=== PATIENT | male | born 1945 | race Caucasian/White ===

== ENCOUNTER 2019-12-22 06:10 | Outpatient (REF) | payer MEDICARE, SELFPAY ==
[2019-12-22 07:00] LABS: MANUAL DIFF FLAG NO
[2019-12-22 07:08] LABS: Basophils Percent Auto 0.5 % (0-2); Eosinophils Absolute Auto 0.2 X10*3/uL (0.0-0.4); Eosinophils Percent Auto 2.3 % (0-4); Hematocrit 40.9 % (42-52); Hemoglobin 14.5 g/dl (14.0-18.0); Imm Gran Abs Auto 0.03 X10*3/uL (0.00-0.03); Imm Gran Pct Auto 0.4 % (0.0-0.4); Lymphocytes Absolute Auto 0.9 X10*3/uL (1.2-4.9); Lymphocytes Percent Auto 12.2 % (20-40); Mean Corpuscular HGB Conc 35.5 g/dl (31.0-36.0); Mean Corpuscular Hemoglobin 31.6 pg (27.0-33.0); Mean Corpuscular Volume 89.1 fL (80-98); Mean Platelet Volume 11.1 fL (9.4-12.4); Monocytes Absolute Auto 0.7 X10*3/uL (0.1-1.2); Neutrophils Absolute Auto 5.6 X10*3/uL (2.0-8.3); Neutrophils Percent Auto 75.6 % (45-73); Platelet Count 215 X10*3/uL (160-400); Red Blood Count 4.59 X10*6/uL (4.60-5.80); White Blood Count 7.4 X10*3/uL (4.8-10.8)
[2019-12-22 07:36] LABS: Alanine Aminotransferase 24 U/L (0-40); Albumin Level 4.4 g/dL (3.5-5.0); Alkaline Phosphatase 91 U/L (39-117); Anion Gap 11 (12-20); Aspartate Amino Transferase 23 U/L (5-37); Blood Urea Nitrogen 13 mg/dL (9-16); Calcium 9.4 mg/dL (8.4-10.2); Carbon Dioxide 29 mmol/L (22-29); Chloride 98 mmol/L (96-108); Cholesterol 226 mg/dL; Estimated Glomerular Filt Rate > 60; Glucose Fasting 107 mg/dL (60-99); HDL Cholesterol 53 mg/dL; LDL Cholesterol Calculated 157 mg/dl; Potassium 4.2 mmol/l (3.3-5.1); Sodium 134 mmol/L (135-145); Total Protein 7.5 g/dL (6.5-8.0); Triglycerides 81 mg/dL
[2019-12-22 13:19] LABS: Thyroid Stimulating Hormone 1.34 uIU/mL (0.32-4.0)
== END 2019-12-22 06:11 | disposition home or self-care (01) ==
LOC: HO.LAB 06:10
PROVIDERS: PCP Internal Medicine; Visit Provider Internal Medicine
DX: I10 Essential (primary) hypertension (principal)
CPT/HCPCS: 36415; 80053; 80061; 84443; 85025

== ENCOUNTER 2020-08-30 06:15 | Outpatient (REF) | payer MEDICARE, SELFPAY ==
[2020-08-30 06:51] LABS: MANUAL DIFF FLAG NO
[2020-08-30 06:56] LABS: Basophils Absolute Auto 0.1 X10*3/uL (0.0-0.2); Basophils Percent Auto 0.5 % (0-2); Eosinophils Absolute Auto 0.2 X10*3/uL (0.0-0.4); Eosinophils Percent Auto 1.4 % (0-4); Hematocrit 40.5 % (42-52); Hemoglobin 13.8 g/dl (14.0-18.0); Imm Gran Abs Auto 0.05 X10*3/uL (0.00-0.03); Imm Gran Pct Auto 0.4 % (0.0-0.4); Lymphocytes Absolute Auto 0.9 X10*3/uL (1.2-4.9); Lymphocytes Percent Auto 7.8 % (20-40); Mean Corpuscular HGB Conc 34.1 g/dl (31.0-36.0); Mean Corpuscular Hemoglobin 30.8 pg (27.0-33.0); Mean Corpuscular Volume 90.4 fL (80-98); Mean Platelet Volume 10.5 fL (9.4-12.4); Monocytes Absolute Auto 0.8 X10*3/uL (0.1-1.2); Monocytes Percent Auto 6.5 % (2-11); Neutrophils Absolute Auto 9.7 X10*3/uL (2.0-8.3); Neutrophils Percent Auto 83.4 % (45-73); Platelet Count 264 X10*3/uL (160-400); Red Blood Count 4.48 X10*6/uL (4.60-5.80); Red Cell Distribution Width 12.5 % (11.0-16.0); White Blood Count 11.6 X10*3/uL (4.8-10.8)
[2020-08-30 07:23] LABS: Alanine Aminotransferase 14 U/L (0-40); Alkaline Phosphatase 124 U/L (39-117); Anion Gap 11 (12-20); Aspartate Amino Transferase 19 U/L (5-37); Blood Urea Nitrogen 10 mg/dL (9-16); Calcium 9.3 mg/dL (8.4-10.2); Carbon Dioxide 30 mmol/L (22-29); Chloride 97 mmol/L (96-108); Cholesterol 207 mg/dL; Estimated Glomerular Filt Rate > 60; Glucose Fasting 101 mg/dL (60-99); HDL Cholesterol 50 mg/dL; LDL Cholesterol Calculated 142 mg/dl; Potassium 4.4 mmol/L (3.3-5.1); Sodium 134 mmol/L (135-145); Total Protein 7.5 g/dL (6.5-8.0); Triglycerides 77 mg/dL
[2020-08-30 07:51] LABS: Prostate Specific Antigen 0.28 ng/mL (<0.05-4.0); TSH reflex Free T4 1.73 uIU/mL (0.32-4.0)
[2020-08-30 12:12] LABS: Vitamin D 25-OH Total 26.5 ng/mL (>30)
== END 2020-08-30 06:16 | disposition home or self-care (01) ==
LOC: HO.LAB 06:15
PROVIDERS: PCP Internal Medicine; Visit Provider Nurse Practitioner Family
DX: Z00.00 Encounter for general adult medical examination without abnormal findings (principal); Z12.5 Encounter for screening for malignant neoplasm of prostate; Z13.1 Encounter for screening for diabetes mellitus; Z13.220 Encounter for screening for lipoid disorders
CPT/HCPCS: 36415; 80053; 80061; 82306; 84153; 84443; 85025

== ENCOUNTER 2021-07-23 07:11 | Outpatient (REF) | payer MEDICARE, SELFPAY ==
[2021-07-23 07:25] LABS: MANUAL DIFF FLAG NO
[2021-07-23 08:16] LABS: Basophils Absolute Auto 0.1 X10*3/uL (0.0-0.2); Basophils Percent Auto 0.6 % (0-2); Eosinophils Absolute Auto 0.1 X10*3/uL (0.0-0.4); Hemoglobin 13.9 g/dl (14.0-18.0); Imm Gran Abs Auto 0.04 X10*3/uL (0.00-0.03); Imm Gran Pct Auto 0.4 % (0.0-0.4); Lymphocytes Absolute Auto 0.8 X10*3/uL (1.2-4.9); Lymphocytes Percent Auto 8.7 % (20-40); Mean Corpuscular HGB Conc 34.8 g/dl (31.0-36.0); Mean Corpuscular Hemoglobin 31.6 pg (27.0-33.0); Mean Corpuscular Volume 90.9 fL (80.0-98.0); Mean Platelet Volume 10.5 fL (9.4-12.4); Monocytes Absolute Auto 0.7 X10*3/uL (0.1-1.2); Monocytes Percent Auto 7.2 % (2-11); Neutrophils Absolute Auto 7.9 x10*3/uL (2.0-8.3); Neutrophils Percent Auto 82.1 % (45-73); Platelet Count 258 X10*3/uL (160-400); Red Cell Distribution Width 12.3 % (11.0-16.0); White Blood Count 9.6 X10*3/uL (4.8-10.8)
[2021-07-23 08:24] LABS: Alanine Aminotransferase 21 U/L (0-40); Alkaline Phosphatase 94 U/L (39-117); Anion Gap 11 (12-20); Aspartate Amino Transferase 24 U/L (5-37); Blood Urea Nitrogen 16 mg/dL (9-16); Calcium 9.1 mg/dL (8.4-10.2); Carbon Dioxide 27 mmol/L (22-29); Chloride 98 mmol/L (96-108); Cholesterol 220 mg/dL; Estimated Glomerular Filt Rate > 60; Glucose Fasting 98 mg/dL (60-99); HDL Cholesterol 43 mg/dL; LDL Cholesterol Calculated 163 mg/dl; Potassium 4.4 mmol/L (3.3-5.1); Sodium 132 mmol/L (135-145); Total Protein 7.2 g/dL (6.5-8.0); Triglycerides 71 mg/dL
[2021-07-23 08:47] LABS: Thyroid Stimulating Hormone 1.32 uIU/mL (0.32-4.0)
== END 2021-07-23 07:12 | disposition home or self-care (01) ==
LOC: HO.LAB 07:11
PROVIDERS: PCP Internal Medicine; Visit Provider Internal Medicine
DX: Z00.00 Encounter for general adult medical examination without abnormal findings (principal); Z13.0 Encounter for screening for diseases of the blood and blood-forming organs and certain disorders involving the immune mechanism; Z13.9 Encounter for screening, unspecified; E78.5 Hyperlipidemia, unspecified
CPT/HCPCS: 36415; 80053; 80061; 84443; 85025

== ENCOUNTER 2022-07-30 07:21 | Outpatient (REF) | payer MEDICARE, SELFPAY ==
[2022-07-30 07:39] LABS: MANUAL DIFF FLAG NO
[2022-07-30 08:21] LABS: Basophils Absolute Auto 0.1 X10*3/uL (0.0-0.2); Basophils Percent Auto 0.8 % (0-2); Eosinophils Absolute Auto 0.2 X10*3/uL (0.0-0.4); Eosinophils Percent Auto 2.8 % (0-4); Hematocrit 39.4 % (42.0-52.0); Hemoglobin 13.4 g/dl (14.0-18.0); Imm Gran Abs Auto 0.02 X10*3/uL (0.00-0.03); Imm Gran Pct Auto 0.3 % (0.0-0.4); Lymphocytes Percent Auto 13.1 % (20-40); Mean Corpuscular Hemoglobin 30.9 pg (27.0-33.0); Mean Corpuscular Volume 90.8 fL (80.0-98.0); Mean Platelet Volume 11.2 fL (9.4-12.4); Monocytes Absolute Auto 0.7 X10*3/uL (0.1-1.2); Monocytes Percent Auto 9.1 % (2-11); Neutrophils Absolute Auto 5.4 x10*3/uL (2.0-8.3); Neutrophils Percent Auto 73.9 % (45-73); Platelet Count 231 X10*3/uL (160-400); Red Blood Count 4.34 X10*6/uL (4.60-5.80); Red Cell Distribution Width 12.3 % (11.0-16.0); White Blood Count 7.3 X10*3/uL (4.8-10.8)
[2022-07-30 08:59] LABS: Alanine Aminotransferase 18 U/L (0-40); Alkaline Phosphatase 86 U/L (39-117); Anion Gap 12 (12-20); Aspartate Amino Transferase 24 U/L (5-37); Bilirubin Total 0.7 mg/dL (0.0-1.0); Blood Urea Nitrogen 13 mg/dL (9-16); Calcium 9.8 mg/dL (8.4-10.2); Carbon Dioxide 29 mmol/L (22-29); Chloride 100 mmol/L (96-108); Cholesterol 199 mg/dL; Estimated Glomerular Filt Rate > 60; Glucose Fasting 101 mg/dL (60-99); HDL Cholesterol 48 mg/dL; LDL Cholesterol Calculated 138 mg/dl; Potassium 4.2 mmol/L (3.3-5.1); Sodium 137 mmol/L (135-145); Total Protein 7.4 g/dL (6.5-8.0); Triglycerides 65 mg/dL
== END 2022-07-30 07:22 | disposition home or self-care (01) ==
LOC: HO.LAB 07:21
PROVIDERS: PCP Internal Medicine; Visit Provider Internal Medicine
DX: D64.9 Anemia, unspecified (principal); N28.9 Disorder of kidney and ureter, unspecified; E78.5 Hyperlipidemia, unspecified
CPT/HCPCS: 36415; 80053; 80061; 85025

== ENCOUNTER 2023-08-06 06:01 | Outpatient (REF) | payer MEDICARE, SELFPAY ==
[2023-08-06 06:16] LABS: MANUAL DIFF FLAG NO
[2023-08-06 07:20] LABS: Basophils Percent Auto 0.4 % (0-2); Eosinophils Absolute Auto 0.1 X10*3/uL (0.0-0.4); Eosinophils Percent Auto 1.6 % (0-4); Hemoglobin 14.1 g/dl (14.0-18.0); Imm Gran Abs Auto 0.03 X10*3/uL (0.00-0.03); Imm Gran Pct Auto 0.4 % (0.0-0.4); Lymphocytes Absolute Auto 0.9 X10*3/uL (1.2-4.9); Lymphocytes Percent Auto 11.6 % (20-40); Mean Corpuscular HGB Conc 34.4 g/dl (31.0-36.0); Mean Corpuscular Hemoglobin 30.8 pg (27.0-33.0); Mean Corpuscular Volume 89.5 fL (80.0-98.0); Mean Platelet Volume 10.6 fL (9.4-12.4); Monocytes Absolute Auto 0.6 X10*3/uL (0.1-1.2); Monocytes Percent Auto 7.8 % (2-11); Neutrophils Absolute Auto 5.7 x10*3/uL (2.0-8.3); Neutrophils Percent Auto 78.2 % (45-73); Platelet Count 248 X10*3/uL (160-400); Red Blood Count 4.58 X10*6/uL (4.60-5.80); Red Cell Distribution Width 12.3 % (11.0-16.0); White Blood Count 7.3 X10*3/uL (4.8-10.8)
[2023-08-06 07:51] LABS: Alanine Aminotransferase 19 U/L (0-40); Albumin Level 4.1 g/dL (3.5-5.0); Alkaline Phosphatase 84 U/L (39-117); Anion Gap 14 (12-20); Aspartate Amino Transferase 25 U/L (5-37); Bilirubin Total 0.7 mg/dL (0.0-1.0); Blood Urea Nitrogen 10 mg/dL (9-16); Calcium 9.6 mg/dL (8.4-10.2); Carbon Dioxide 27 mmol/L (22-29); Chloride 94 mmol/L (96-108); Cholesterol 209 mg/dL (<200); Estimated Glomerular Filt Rate > 60; Glucose Fasting 105 mg/dL (60-99); HDL Cholesterol 46 mg/dL (>40); LDL Cholesterol Calculated 147 mg/dL (<100); Potassium 4.5 mmol/L (3.3-5.1); Sodium 130 mmol/L (135-145); Total Protein 7.7 g/dL (6.5-8.0); Triglycerides 80 mg/dL (<150)
[2023-08-06 08:09] LABS: Thyroid Stimulating Hormone 1.78 uIU/mL (0.32-4.0)
== END 2023-08-06 06:02 | disposition home or self-care (01) ==
LOC: HO.LAB 06:01
PROVIDERS: PCP Internal Medicine; Visit Provider Internal Medicine
DX: Z13.29 Encounter for screening for other suspected endocrine disorder (principal); Z13.220 Encounter for screening for lipoid disorders; Z13.0 Encounter for screening for diseases of the blood and blood-forming organs and certain disorders involving the immune mechanism; Z20.2 Contact with and (suspected) exposure to infections with a predominantly sexual mode of transmission
CPT/HCPCS: 36415; 80053; 80061; 84443; 85025

== ENCOUNTER 2023-08-15 08:46 | Outpatient (AMB) | payer MEDICARE, SELFPAY ==
[2023-08-15 08:49] VITALS: BP 130/62; PULSE 74; O2SAT 98; BMI 22.8
--- NOTE | 2023-08-15 08:49 | A.OFFPC_ITS ---
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 per policy Accompanied by: Self / Same As Patient Allergies No Known Allergies Allergy (Verified 08/15/23 08:49) Medication List - Last Reconciled 08/15/23 by Hayden Narvaez MD amlodipine 10 mg PO DAILY hydrochlorothiazide 25 mg PO DAILY Tobacco use date assessed: 08/15/23 Fall risk assessment: No Falls in past year Last assessed Fall Risk: 08/15/23 Dental Screening Dental Screen Date: 08/15/23 Did you have a dental visit in the last 12 months?: Yes Did you have a dental problem in the last 6 months where you did not have access to dental care?: No Was dental information given to patient?: Patient has dentist HPI PHYSICAL HPI Details hypertension on rx; doing well and complianr [facility] Medical History (Updated 08/15/23 @ 09:14 by Hayden Narvaez MD) Screening for prostate cancer Screening for hyperlipidemia Screening for diabetes mellitus Hypertension Surgical History History of colonoscopy No pertinent past surgical history Family History Father No problems noted. Mother Stroke Social History Housing: Condominium Alcohol intake: current Alcohol intake frequency: a few times a week Patient Tobacco Use Status: Never used Tobacco e-Cigarette/Vaping Use: Never Used Second Hand Smoke Exposure: No service: No Current occupational status: retired Cognitive needs: No Hearing needs: No Vision needs: No Questionnaire PHQ-9 Over the last 2 weeks, how often have you been bothered by any of the following problems? 1. Little interest or pleasure in doing things: not at all 2. Feeling down, depressed, or hopeless: not at all 3. Trouble falling or staying asleep, or sleeping too much: not at all 4. Feeling tired or having little energy: not at all 5. Poor appetite or overeating: not at all 6. Feeling bad about yourself - or that you are a failure or have let yourself or your family down: not at all 7. Trouble concentrating on things, such as reading the newspaper or watching television: not at all 8. Moving or speaking so slowly that other people could have noticed. Or the opposite - being so fidgety or restless that you have been moving around a lot more than usual: not at all 9. Thoughts that you would be better off or of hurting yourself in some way: not at all Total score: 0 Depression Screening Interpretation: Negative Depression Screening Done: Yes 41667 - PHQ-9 Billing: Yes Source: Developed by Drs. Alessandro Wright, Sridevi Solis, Emil Taylor and colleagues, with an educational sonya from [employer]. Thrive Questionnaire Date Thrive assessed: 08/15/23 I am a: Patient What is your living situation today?: I have a steady place to live Within the past 12 months, did the food you bought not last and you didn't have the money to get more?: Never true Within the past 12 months, did you worry whether your food would run out before you got money to buy more?: Never true Do you have trouble paying for medicines?: No Do you have trouble getting transportation to medical appointments?: No Do you have trouble paying your heating and electricity bill?: No Do you have trouble taking care of your child, family member or friend?: No Do you have trouble with day-to-day activities such as bathing, preparing meals, shopping, managing finances, etc.?: No Are you currently unemployed and looking for a job?: No Are you interested in more education?: No Please select the resources that you would like help with: None THRIVE Score: 0 AUDIT C Alcohol Use Questionnaire (AUDIT-C) 1. How often do you have a drink containing alcohol?: Never Total Score: 0 Score Reviewed/Action Taken: Yes SUSANNAH-7 AMB Questionnaire SUSANNAH-7 Date SUSANNAH - 7 assessed: 08/15/23 Feeling nervous, anxious, or on edge: 0 = Not at all Not being able to stop or control worryin = Not at all Worrying too much about different things: 0 = Not at all Trouble relaxin = Not at all Being so restless that it is hard to sit still: 0 = Not at all Becoming easily annoyed or irritable: 0 = Not at all Feeling afraid as if something awful might happen: 0 = Not at all Total SUSANNAH-7 score (0-4 normal; 5-9 mild; 10-14 moderate; 15-21 severe): 0 Source: Developed by Drs. Alessandro Wright, Sridevi Solis, Emil Taylor and colleagues, with an educational sonya from [employer]. Review of Systems Const Denies chills, Denies fatigue, Denies headache(s) and Denies weight loss Eyes Denies change in vision, Denies diplopia and Denies eye pain ENT Denies vertigo, Denies dizziness, Denies headache(s) and Denies nasal discharge Card Denies chest pain, Denies rapid heart rate and Denies dyspnea on exertion Resp Denies chest congestion, Denies cough, Denies pain with cough and Denies dyspnea on exertion GI Denies abdominal pain, Denies hematochezia and Denies change in bowel habits Musc Denies myalgias, Denies arthralgias and Denies joint swelling Skin/Breast Denies lesions and Denies unusual bruising Neuro Denies vertigo, Denies dizziness, Denies headache(s) and Denies focal weakness Endo Denies fatigue Physical exam (Primary Care) Vital Signs: Last Vital Signs Pulse 74 08/15/23 08:49 BP 130/62 08/15/23 08:49 Pulse Ox 98 08/15/23 08:49 Oxygen Delivery Method Room Air 08/15/23 08:49 BMI result Body Mass Index 22.8 Tobacco/Smoking Status: Tobacco use Status Tobacco use date assessed 08/15/23 08/15/23 08:50 Patient Tobacco Use Status Never used Tobacco 08/15/23 08:50 e-Cigarette/Vaping Use Never Used 08/15/23 08:50 PHQ-9: PHQ-9 Score PHQ-9: Total score 0 08/15/23 09:14 Depression Screening Interpretation: Negative Thrive Assessment: Date of Thrive Assessment Date Thrive assessed 08/15/23 08/15/23 08:50 Const General: cooperative, healthy appearing and no acute distress Orientation/consciousness: oriented to person, oriented to place and oriented to time HENCT Head: Yes normal to inspection, Yes normocephalic and Yes atraumatic Mouth: Normal oral and palatal mucosa present and tongue normal Throat: Yes posterior oropharynx normal and Yes uvula midline Eyes General: appearance normal, both eyes and all related structures Neck Neck: Yes normal visual inspection, Yes full ROM and Yes no lymphadenopathy Thyroid: Thyroid normal Carotids: normal carotid upstroke Chest Chest palpation & inspection: normal inspection of the chest Resp Effort & Inspection: normal respiratory effort and able to speak in complete sentences Auscultation: clear to auscultation bilaterally Cardio Jugular venous distension: no JVD Palpation: normal PMI Rate: regular rate Rhythm: regular rhythm Heart sounds: S1 normal heart sound present and S2 normal heart sound present GI Inspection: Yes normal to inspection Palpation (GI): Soft to palpation and No hepatosplenomegaly present Auscultation: normal bowel sounds General: Yes no CVA tenderness Back/Spine/Pelvis Back: no CVA tenderness Skin General skin exam: no rashes or lesions noted Neuro General: oriented to person, oriented to place and oriented to time Extrem General: Yes normal to inspection and Yes full ROM Assessment and Plan Assessment & Plan (1) Physical exam: Code(s): Z00.00 - Encounter for general adult medical examination without abnormal findings Plan: stable (2) Hypertension: Code(s): I10 - Essential (primary) hypertension Qualifiers: Hypertension type: unspecified Qualified Code(s): I10 - Essential (primary) hypertension Plan: same rx Coding Level of Care Code Est Pt Prev Care >65y(82995) Diagnoses Physical exam Z00.00 Hypertension, unspecified type I10 Hypertension type: unspecified
== END 2023-08-15 09:15 | disposition home or self-care (01) ==
PROVIDERS: PCP Internal Medicine; Visit Provider Internal Medicine
DX: Z00.00 Encounter for general adult medical examination without abnormal findings (principal); I10 Essential (primary) hypertension
CPT/HCPCS: 99397

== ENCOUNTER 2024-05-10 10:30 | Outpatient (AMB) | payer MEDICARE, SELFPAY ==
--- NOTE | 2024-05-10 11:51 | AM.OFFWIN_ITS ---
Intake Vital Signs 05/10/24 11:52 Weight 162 lb BP 140/80 H Blood Pressure Location Lt brachial Position Sitting Pulse 92 Pulse Source Pulse Oximeter Pulse Oximetry (%) 97 Oxygen Delivery Method Room Air Intake Visit Reasons: EP LT leg swelling Intake Note: Patient here for left leg swelling that has been present for about 1 week. Patient Tobacco Use Status: Never used Tobacco Allergies No Known Allergies Allergy (Verified 05/10/24 11:52) Do you need a note to return to daycare/school/sports/work: No HPI HPI Comments History of Present Illness Details 79 Y/O Male patient who presents to the walk in clinic with c/o Left lower leg swelling associated with pain and muscle cramping and tightness x 1 week. Does not recall any injury or trauma to the leg. Denies SOB, CP, headaches, wheezing or dizziness. Denies any h/o Blood Clots. Denies taking any Blood Thinners. Denies any Insect bites or rashes. [facility] Medical History (Updated 05/10/24 @ 12:24 by Danielle Becker NP) Lower extremity edema Screening for prostate cancer Screening for hyperlipidemia Screening for diabetes mellitus Hypertension Surgical History History of colonoscopy No pertinent past surgical history Family History Father No problems noted. Mother Stroke [facility] Alcohol intake: current Alcohol intake frequency: a few times a week Patient Tobacco Use Status: Never used Tobacco e-Cigarette/Vaping Use: Never Used Second Hand Smoke Exposure: No service: No Current occupational status: retired Cognitive needs: No Hearing needs: No Vision needs: No Review of Systems Const All systems reviewed & are unremarkable except as noted in HPI and below Physical Exam Vital Signs: Last Vital Signs Pulse 92 05/10/24 11:52 BP 140/80 H 05/10/24 11:52 Pulse Ox 97 05/10/24 11:52 Oxygen Delivery Method Room Air 05/10/24 11:52 Const General: cooperative and no acute distress Orientation/consciousness: patient oriented x3 Neuro General: patient oriented x3, gait normal (Walks with a slight Limp) and moves all extremities Extrem Left lower extremity: full ROM, normal capillary refill and lower leg (Swelling and Edema more pronounced from Left Ankle to Foot) Details: tenderness Location: of the posterior calf, of the distal tibia and of the distal fibula and pitting edema Details: 3+; no erythema and no ecchymosis; no cyanosis Psych Speech and movement: Normal speech and movement present Assessment & Plan Assessment & Plan (1) Lower extremity edema: Code(s): R60.0 - Localized edema Plan: Ordered STAT U/S to r/o DVT. Normal Skin color/Temperature, no obvious Puncture wounds seen. Vital Signs stable, slight elevated BP. No clear etiology at this time. Orders: Orders US venous duplex LE LT Today R60.0 - Localized edema Coding Level of Care Code Est Pt Level 4 (73304) Diagnoses Lower extremity edema R60.0 Time Spent (min) 20
[2024-05-10 11:52] VITALS: BP 140/80; PULSE 92; O2SAT 97
== END 2024-05-10 13:25 | disposition home or self-care (01) ==
PROVIDERS: PCP Internal Medicine; Visit Provider Nurse Practitioner Family
DX: R60.0 Localized edema (principal)

== ENCOUNTER 2024-05-10 10:30 | Outpatient (REF) | payer MEDICARE, SELFPAY | END 2024-05-10 10:31 | disposition home or self-care (01) | LOC: HO.HMGCX 10:30 | PROVIDERS: PCP Internal Medicine; Visit Provider Nurse Practitioner Family | DX: Z13.89 Encounter for screening for other disorder (principal) ==

== ENCOUNTER 2024-05-10 14:56 | Outpatient (REF) | payer MEDICARE, SELFPAY ==
--- NOTE | ~2024-05-10 | US_ITS ---
EXAMINATION: US TRIPLEX LOWER EXTREMITY, LEFT CLINICAL INFORMATION: Localized edema, left lower extremity. COMPARISON: None available. TECHNIQUE: Color-flow triplex imaging with spectral analysis and compression Doppler were performed on the left lower extremity. FINDINGS: Respiratory variation, normal compression and augmented flow are noted throughout the interrogated common femoral vein, superficial femoral vein, profunda femoral vein, popliteal vein and midcalf peroneal and posterior tibial venous. There is an approximately 4 cm lobulated anechoic lesion with internal echoes in the left popliteal region, medially without flow on color Doppler interrogation. US/US venous duplex LE LT IMPRESSION: No acute deep venous thrombosis involving the left lower extremity. Approximately 4 cm complex lobulated left popliteal cyst. The possibility of blood products versus infection cannot be excluded. Findings communicated the at either connect to the requesting nurse practitioner senior administrative assistant Danielle Becker on May 10, 2024 at 3:29 PM Electronically signed by: Melchor Lyons MD 05/10/2024 03:30 PM EDT
== END 2024-05-10 14:57 | disposition home or self-care (01) ==
LOC: HO.HMGCX 14:56
PROVIDERS: PCP Internal Medicine; Visit Provider Nurse Practitioner Family
DX: R60.0 Localized edema (principal); M71.20 Synovial cyst of popliteal space [Baker], unspecified knee
CPT/HCPCS: 93971; 99212

== ENCOUNTER → 2024-05-10 15:00 | Outpatient (BNV) | payer MEDICARE, SELFPAY | PROVIDERS: PCP Internal Medicine; Visit Provider Radiology Diagnostic Radiology | DX: M71.22 Synovial cyst of popliteal space [Baker], left knee (principal); R60.0 Localized edema | CPT/HCPCS: 93971 ==

== ENCOUNTER 2024-05-14 15:11 | Outpatient (AMB) | payer MEDICARE, SELFPAY ==
--- NOTE | 2024-05-14 15:22 | A.OFFPC_ITS ---
Vital Signs 05/14/24 15:24 Height 5 ft 10 in Weight 162 lb 4 oz BMI 23.3 BP 130/62 Blood Pressure Location Lt brachial Position Sitting Pulse 100 Pulse Source Pulse Oximeter Temp 97.1 F Temp Source Temporal Artery Scan Pulse Oximetry (%) 98 Oxygen Delivery Method Room Air Intake Visit Reasons: zeng's cyst Intake Note: Patient is here to follow up on Zeng's cyst. 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 aNrvaez 08/2023 coming in for follow up from walk-in clinic.? Patient was seen in walk-in clinic 05/10/2024 by nurse practitioner for lower extremity edema stat ultrasound ruled out DVT and Zeng's cyst was visualized however concern for significant pain and MRI was ordered. Presenting with concerns regarding a leg cyst. 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 Prednisone treatment initiated with notable symptom amelioration; approximately five days remain in the course of therapy. Little to no pain is associated with the mass, with minor stiffness up on leg extension. The patient remains active, managing daily routines such as ascending and descending stairs frequently without notable impediment. [facility] Medical History Zeng's cyst Lower extremity edema Screening for prostate cancer Screening for hyperlipidemia Screening for diabetes mellitus Hypertension Surgical History History of colonoscopy No pertinent past surgical history Family History Father No problems noted. Mother Stroke Social History Housing: Condominium Alcohol intake: current Alcohol intake frequency: a few times a week Patient Tobacco Use Status: Never used Tobacco e-Cigarette/Vaping Use: Never Used Second Hand Smoke Exposure: No service: No Current occupational status: retired Cognitive needs: No Hearing needs: No Vision needs: No Questionnaire PHQ-9 Over the last 2 weeks, how often have you been bothered by any of the following problems? 1. Little interest or pleasure in doing things: not at all 2. Feeling down, depressed, or hopeless: not at all 3. Trouble falling or staying asleep, or sleeping too much: not at all 4. Feeling tired or having little energy: not at all 5. Poor appetite or overeating: not at all 6. Feeling bad about yourself - or that you are a failure or have let yourself or your family down: not at all 7. Trouble concentrating on things, such as reading the newspaper or watching television: not at all 8. Moving or speaking so slowly that other people could have noticed. Or the opposite - being so fidgety or restless that you have been moving around a lot more than usual: not at all 9. Thoughts that you would be better off or of hurting yourself in some way: not at all Total score: 0 Depression Screening Interpretation: Negative Depression Screening Done: Yes Source: Developed by Drs. Alessandro Wright, Sridevi Solis, Emil Taylor and colleagues, with an educational sonya from [employer]. Thrive Questionnaire Date Thrive assessed: 05/14/24 I am a: Patient What is your living situation today?: I have a steady place to live Within the past 12 months, did the food you bought not last and you didn't have the money to get more?: Never true Within the past 12 months, did you worry whether your food would run out before you got money to buy more?: Never true Do you have trouble paying for medicines?: No Do you have trouble getting transportation to medical appointments?: No Do you have trouble paying your heating and electricity bill?: No Do you have trouble taking care of your child, family member or friend?: No Do you have trouble with day-to-day activities such as bathing, preparing meals, shopping, managing finances, etc.?: No Are you currently unemployed and looking for a job?: No Are you interested in more education?: No Please select the resources that you would like help with: None Currently or been in a relationship where the following occur: No concerns reported THRIVE Score: 0 AUDIT C Alcohol Use Questionnaire (AUDIT-C) 2. How many drinks containing alcohol do you have on a typical day when you are drinking?: 1 or 2 3. How often do you have six or more drinks on one occasion?: Never Total Score: 0 SUSANNAH-7 AMB Questionnaire SUSANNAH-7 Date SUSANNAH - 7 assessed: 05/14/24 Feeling nervous, anxious, or on edge: 0 = Not at all Not being able to stop or control worryin = Not at all Worrying too much about different things: 0 = Not at all Trouble relaxin = Not at all Being so restless that it is hard to sit still: 0 = Not at all Becoming easily annoyed or irritable: 0 = Not at all Feeling afraid as if something awful might happen: 0 = Not at all Total SUSANNAH-7 score (0-4 normal; 5-9 mild; 10-14 moderate; 15-21 severe): 0 Source: Developed by Drs. Alessandro Wright, Sridevi Solis, Emil Taylor and colleagues, with an educational sonya from [employer]. Review of Systems Const Denies body aches, Denies chills, Denies fever(s), Denies headache(s) and Denies poor appetite Eyes Reports no additional complaints ENT Denies dysphagia, Denies dizziness, Denies headache(s) and Denies odynophagia Card Denies chest pain, Denies syncope, Denies edema, Denies irregular heart rhythm, Denies lightheadedness and Denies dyspnea Resp Denies cough and Denies dyspnea GI Denies abdominal pain, Denies constipation, Denies dysphagia, Denies diarrhea, Denies nausea, Denies odynophagia and Denies vomiting Reports no additional complaints Musc Reports no additional complaints and Denies abnormal gait Skin/Breast Reports system reviewed and no additional complaints, except as documented Neuro Denies abnormal gait, Denies dizziness, Denies syncope and Denies headache(s) Psych Reports no additional complaints Physical exam (Primary Care) Vital Signs: Last Vital Signs Temp 97.1 F 05/14/24 15:24 Pulse 100 05/14/24 15:24 BP 130/62 05/14/24 15:24 Pulse Ox 98 05/14/24 15:24 Oxygen Delivery Method Room Air 05/14/24 15:24 BMI result Body Mass Index 23.3 Tobacco/Smoking Status: Tobacco use Status Tobacco use date assessed 05/14/24 05/14/24 15:28 Patient Tobacco Use Status Never used Tobacco 05/14/24 15:28 e-Cigarette/Vaping Use Never Used 05/14/24 15:28 PHQ-9: PHQ-9 Score PHQ-9: Total score 0 05/14/24 15:42 Depression Screening Interpretation: Negative Thrive Assessment: Date of Thrive Assessment Date Thrive assessed 05/14/24 05/14/24 15:28 Currently or been in a relationship where the following occur: No concerns reported Const General: cooperative, healthy appearing, comfortable and no acute distress Orientation/consciousness: patient oriented x3 HENMT Head: Yes normocephalic Ears: hearing grossly normal bilaterally General nose exam: Normal external nose present Eyes General: appearance normal, both eyes and all related structures Conjunctivae: conjunctivae normal Neck Neck: Yes full ROM and Yes no lymphadenopathy Resp Effort & Inspection: normal respiratory effort Auscultation: clear to auscultation bilaterally, no crackles, no rales, no rhonchi and no wheezes Cardio Rate: regular rate Rhythm: regular rhythm Skin General skin exam: no rashes or lesions noted Neuro General: patient oriented x3 Gait exam (Neuro): Normal gait present Extrem Other: no tenderness to palpation of lower extremity, no edema of bilateral lower extremities and left lower extremity without overlying skin changes and intact pulses, strength and sensation General: Yes normal to inspection, Yes full ROM and No edema Left lower extremity: normal to inspection and full ROM; no edema Psych Affect: normal affect Attitude: cooperative Insight: Good insight present (Psych) Judgement: Good judgement present (Psych) Coding Level of Care Code Est Pt Level 3 (79576) Diagnoses Zeng's cyst M71.20 Lower extremity edema R60.0 Hypertension, unspecified type I10 Hypertension type: unspecified Assessment & Plan Assessment & Plan (1) Zeng's cyst: Code(s): M71.20 - Synovial cyst of popliteal space [Zeng], unspecified knee Category: Medical Plan: Patient continues to have Zeng's cyst behind the left knee to continue monitoring at this time. (2) Lower extremity edema: Code(s): R60.0 - Localized edema Category: Medical Plan: Edema has largely resolved of the left lower extremity continues on prednisone at this time. Plan to continue with MRI as scheduled as underlying etiology is not confirmed to be ruptured Zeng's cyst. (3) Hypertension: Code(s): I10 - Essential (primary) hypertension Category: Medical Qualifiers: Hypertension type: unspecified Qualified Code(s): I10 - Essential (primary) hypertension Plan: Continue on current blood pressure medication. Avoid salt intake and encourage healthy diet and regular exercise. Plan This note was constructed using voice recognition software. While every effort has been made to ensure accuracy and patrol deputy sheriff, still areas may have been included sometimes these areas may affect the content or meeting of the given symptoms. Total time spent caring for the patient today was 20 minutes. This includes time spent before the visit reviewing the chart, time spent during the visit, and time spent after the visit and documentation. Patient was informed and verbally consented to the use of an ambient scribe for clinic note documentation during this visit. Orders: Orders MR knee LT wo/w con Today M71.20 - Synovial cyst of popliteal space [Zeng], unspecified knee, R60.0 - Localized edema
[2024-05-14 15:24] VITALS: BP 130/62; PULSE 100; TEMP 36.2; O2SAT 98; BMI 23.3
== END 2024-05-14 16:00 | disposition home or self-care (01) ==
LOC: HO.HMCH 15:12
PROVIDERS: PCP Internal Medicine
DX: M71.20 Synovial cyst of popliteal space [Baker], unspecified knee (principal); R60.0 Localized edema; I10 Essential (primary) hypertension

== ENCOUNTER → 2024-05-14 15:11 | Outpatient (BNVA) | payer MEDICARE, SELFPAY | PROVIDERS: PCP Internal Medicine | DX: I10 Essential (primary) hypertension (principal); M71.20 Synovial cyst of popliteal space [Baker], unspecified knee; R60.0 Localized edema | CPT/HCPCS: 96127; 99212 ==

== ENCOUNTER 2024-07-06 09:17 | Outpatient (AMB) | payer MEDICARE, SELFPAY ==
--- NOTE | 2024-07-06 09:59 | AM.OFFWIN_ITS ---
Intake Vital Signs 07/06/24 10:00 Height 5 ft 10 in Weight 162 lb BMI 23.2 BP 130/64 Blood Pressure Location Lt brachial Position Sitting Pulse 67 Pulse Source Pulse Oximeter Temp 97.9 F Temp Source Oral Pulse Oximetry (%) 97 Oxygen Delivery Method Room Air Intake Visit Reasons: EP LT leg swelling Patient Tobacco Use Status: Never used Tobacco Allergies No Known Allergies Allergy (Verified 07/06/24 10:00) Do you need a note to return to daycare/school/sports/work: No HPI HPI Comments History of Present Illness Details 79 Y/O Male patient who presents to the walk in clinic with c/o Left lower leg swelling associated with pain and muscle cramping and tightness for few weeks. Does not recall any injury or trauma to the leg. Denies SOB, CP, headaches, wheezing or dizziness. Denies any h/o Blood Clots. Denies taking any Blood Thinners. Denies any Insect bites or rashes. Pt previously 04/2024 presented here with similar concern - Duplex U/S was negative for DVT but positive for Zeng's cyst. He was treated with Prednisone for 10 days with complete resolution. He had f/u with PCP in 05/2024 and symptoms were resolved. [facility] Medical History Zeng's cyst Lower extremity edema Screening for prostate cancer Screening for hyperlipidemia Screening for diabetes mellitus Hypertension Surgical History History of colonoscopy No pertinent past surgical history Family History Father No problems noted. Mother Stroke Social History Housing: Condominium Alcohol intake: current Alcohol intake frequency: a few times a week Patient Tobacco Use Status: Never used Tobacco e-Cigarette/Vaping Use: Never Used Second Hand Smoke Exposure: No service: No Current occupational status: retired Cognitive needs: No Hearing needs: No Vision needs: No Review of Systems Const All systems reviewed & are unremarkable except as noted in HPI and below Physical Exam Vital Signs: Last Vital Signs Temp 97.9 F 07/06/24 10:00 Pulse 67 07/06/24 10:00 BP 130/64 07/06/24 10:00 Pulse Ox 97 07/06/24 10:00 Oxygen Delivery Method Room Air 07/06/24 10:00 BMI result Body Mass Index 23.2 Extrem Right lower extremity: normal to inspection and full ROM Left lower extremity: normal capillary refill, lower leg Details: tenderness (Mild tenderness) and pitting edema Details: 1+; no erythema and ankle Details: tenderness, swelling Details: diffusely, pitting edema Details: pitting and 1+ and normal ROM; no warmth Psych Speech and movement: Normal speech and movement present Assessment & Plan Assessment & Plan (1) Zeng's cyst: Code(s): M71.20 - Synovial cyst of popliteal space [Zeng], unspecified knee Qualifiers: Laterality: left Qualified Code(s): M71.22 - Synovial cyst of popliteal space [Zeng], left knee Plan: NSAIDs for pain relief. Ordered Uric Acid Blood work Maintaining a healthy weight and avoiding high-impact activities can also help manage the condition. RICE (Rest, Ice, Compression, Elevation). Ordered Prednisone. (2) Lower extremity edema: Code(s): R60.0 - Localized edema Plan: NSAIDs for pain relief. Ordered Uric Acid Blood work Maintaining a healthy weight and avoiding high-impact activities can also help manage the condition. RICE (Rest, Ice, Compression, Elevation). Ordered Prednisone. Orders: Orders Uric Acid Today R60.0 - Localized edema Medications: New diclofenac potassium 50 mg PO DAILY 10 days 10 tabs 0RF M71.22 - Synovial cyst of popliteal space [Zeng], left knee prednisone 20 mg PO DAILY 10 tabs 0RF M71.22 - Synovial cyst of popliteal space [Zeng], left knee Coding Level of Care Code Est Pt Level 4 (22049) Diagnoses Synovial cyst of left popliteal space M71.22 Laterality: left Lower extremity edema R60.0 Time Spent (min) 20
[2024-07-06 10:00] VITALS: BP 130/64; PULSE 67; TEMP 36.6; O2SAT 97; BMI 23.2
== END 2024-07-06 11:07 | disposition home or self-care (01) ==
PROVIDERS: PCP Internal Medicine; Visit Provider Nurse Practitioner Family
DX: M71.22 Synovial cyst of popliteal space [Baker], left knee (principal); R60.0 Localized edema

== ENCOUNTER 2024-07-06 09:17 | Outpatient (REF) | payer MEDICARE, SELFPAY ==
[2024-07-06 13:21] LABS: MANUAL DIFF FLAG NO
[2024-07-06 13:44] LABS: Estimated Average Glucose 117 mg/dL; Hemoglobin A1C 135.6901 umol/L; Hemoglobin A1c % 5.7 % (<6.0); Uric Acid 5.5 mg/dL (3.4-7.0)
[2024-07-06 13:46] LABS: Basophils Absolute Auto 0.1 X10*3/uL (0.0-0.2); Basophils Percent Auto 0.5 % (0-2); Eosinophils Absolute Auto 0.2 X10*3/uL (0.0-0.4); Eosinophils Percent Auto 1.8 % (0-4); Hematocrit 38.2 % (42.0-52.0); Imm Gran Abs Auto 0.06 X10*3/uL (0.00-0.03); Imm Gran Pct Auto 0.6 % (0.0-0.4); Lymphocytes Absolute Auto 0.8 X10*3/uL (1.2-4.9); Lymphocytes Percent Auto 7.3 % (20-40); Mean Corpuscular Hemoglobin 30.6 pg (27.0-33.0); Mean Corpuscular Volume 89.9 fL (80.0-98.0); Mean Platelet Volume 10.8 fL (9.4-12.4); Monocytes Absolute Auto 1.2 X10*3/uL (0.1-1.2); Monocytes Percent Auto 11.7 % (2-11); Neutrophils Absolute Auto 8.3 x10*3/uL (2.0-8.3); Neutrophils Percent Auto 78.1 % (45-73); Platelet Count 375 X10*3/uL (160-400); Red Blood Count 4.25 X10*6/uL (4.60-5.80); Red Cell Distribution Width 12.5 % (11.0-16.0); White Blood Count 10.6 X10*3/uL (4.8-10.8)
[2024-07-06 13:54] LABS: Alanine Aminotransferase 16 U/L (0-40); Alkaline Phosphatase 129 U/L (39-117); Anion Gap 12 (12-20); Aspartate Amino Transferase 27 U/L (5-37); Bilirubin Total 0.5 mg/dL (0.0-1.0); Blood Urea Nitrogen 15 mg/dL (9-16); Calcium 9.4 mg/dL (8.4-10.2); Carbon Dioxide 27 mmol/L (22-29); Chloride 98 mmol/L (96-108); Estimated Glomerular Filt Rate > 60; Glucose Random 100 mg/dL (60-115); Potassium 3.9 mmol/L (3.3-5.1); Sodium 133 mmol/L (135-145); Total Protein 7.8 g/dL (6.5-8.0)
== END 2024-07-06 09:18 | disposition home or self-care (01) ==
LOC: HO.HMGCLDS 09:17
PROVIDERS: PCP Internal Medicine; Visit Provider Nurse Practitioner Family
DX: M71.22 Synovial cyst of popliteal space [Baker], left knee (principal); R60.0 Localized edema; Z13.1 Encounter for screening for diabetes mellitus; Z00.00 Encounter for general adult medical examination without abnormal findings
CPT/HCPCS: 36415; 80053; 83036; 84550; 85025; 99212

== ENCOUNTER 2024-07-15 05:59 | Outpatient (REF) | payer MEDICARE, SELFPAY ==
[2024-07-15 07:45] LABS: Sodium 136 mmol/L (135-145)
== END 2024-07-15 06:00 | disposition home or self-care (01) ==
LOC: HO.LAB 05:59
DX: E87.1 Hypo-osmolality and hyponatremia (principal)
CPT/HCPCS: 36415; 84295

== ENCOUNTER 2024-07-28 10:44 | Outpatient (AMB) | payer MEDICARE, SELFPAY ==
[2024-07-28 11:01] VITALS: BP 132/84; PULSE 71; TEMP 36.6; O2SAT 99; BMI 23.3
--- NOTE | 2024-07-28 11:01 | AM.OFFWIN_ITS ---
Intake Vital Signs 07/28/24 11:01 Height 5 ft 10 in Weight 162 lb 4 oz BMI 23.3 BP 132/84 Blood Pressure Location Lt brachial Position Sitting Pulse 71 Pulse Source Pulse Oximeter Temp 97.8 F Temp Source Oral Pulse Oximetry (%) 99 Oxygen Delivery Method Room Air Intake Visit Reasons: EP pain & swollen LT leg Intake Note: Pt presents to the office today for c/o swollen and painful left leg. Pt states this has been going on for a while and was seen in the walk in on 07/06/24 for a bakers cyst. Patient Tobacco Use Status: Never used Tobacco Allergies No Known Allergies Allergy (Verified 07/28/24 11:03) Medication List - Last Reconciled 07/28/24 by Lea Johnson MD amlodipine 10 mg PO DAILY hydrochlorothiazide 25 mg PO DAILY HPI EP pain & swollen LT leg HPI Details History - The patient is an 79-year-old male pre senting with knee pain and swelling in the left leg. - He has a history of a Zeng's cyst in the left leg, which ruptured a few months ago, causing significant swelling. - Following the rupture, he was treated with prednisone, which initially reduced the swelling. - The swelling recurred, and another cou rse of medication, possibly prednisone, was administered, providing temporary relief. - The patient is uncertain about the exa ct timeline but estimates it occurred over a month ago. - He experiences pain particularly when walking, climbing stairs, or lifting the leg, with swelling noted especially after prolonged physical activity. - Symptoms are described as persistent, occurring in the back of the knee and occasionally extending downwards. - The patient reports difficulty maneuve ring the stairs, which aggravates the pain, potentially indicating underlying arthritis or a possible meniscal tear. - No formal imaging or orthopedic evalua tion has been pursued so far. Medications: - Prednisone: for swelling post-cyst rup ture Social History: - The patient lives on the third floor a nd must navigate multiple flights of stairs, which contributes to knee pain and functional difficulty. - Tylenol has been used previously for p ain relief by the patient or his . - Utilizes Aleve for pain and inflammati on management. Problem List - Knee pain - Swelling in left leg - Zeng's cyst (previous rupture) - Possible underlying arthritis Patient Instructions - Undergo knee x-ray as ordered. - Avoid excessive physical activity to m inimize knee strain. - Use Aleve for inflammation and pain co ntrol. - Combine Aleve with Tylenol for additio nal pain relief if needed. Review of Systems. 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 Mother Stroke Social History Housing: Condominium Alcohol intake: current Alcohol intake frequency: a few times a week Patient Tobacco Use Status: Never used Tobacco e-Cigarette/Vaping Use: Never Used Second Hand Smoke Exposure: No service: No Current occupational status: retired Cognitive needs: No Hearing needs: No Vision needs: No Physical Exam Vital Signs: Last Vital Signs Temp 97.8 F 07/28/24 11:01 Pulse 71 07/28/24 11:01 BP 132/84 07/28/24 11:01 Pulse Ox 99 07/28/24 11:01 Oxygen Delivery Method Room Air 07/28/24 11:01 BMI result Body Mass Index 23.3 Assessment & Plan Assessment & Plan (1) Knee pain, left: Code(s): M25.562 - Pain in left knee Qualifiers: Chronicity: acute Qualified Code(s): M25.562 - Pain in left knee Plan History - The patient is an 79-year-old male presenting with knee pain and swelling in the left leg. - He has a history of a Zeng's cyst in the left leg, which ruptured a few months ago, causing significant swelling. - Following the rupture, he was treated with prednisone, which initially reduced the swelling. - The swelling recurred, and another course of medication, possibly prednisone, was administered, providing temporary relief. - The patient is uncertain about the exact timeline but estimates it occurred over a month ago. - He experiences pain particularly when walking, climbing stairs, or lifting the leg, with swelling noted especially after prolonged physical activity. - Symptoms are described as persistent, occurring in the back of the knee and occasionally extending downwards. - The patient reports difficulty maneuvering the stairs, which aggravates the pain, potentially indicating underlying arthritis or a possible meniscal tear. - No formal imaging or orthopedic evaluation has been pursued so far. Medications: - Prednisone: for swelling post-cyst rupture Social History: - The patient lives on the third floor and must navigate multiple flights of stairs, which contributes to knee pain and functional difficulty. - Tylenol has been used previously for pain relief by the patient or his . - Utilizes Aleve for pain and inflammation management. Problem List - Knee pain - Swelling in left leg - Zeng's cyst (previous rupture) - Possible underlying arthritis Patient Instructions - Undergo knee x-ray as ordered. - Avoid excessive physical activity to minimize knee strain. - Use Aleve for inflammation and pain control. - Combine Aleve with Tylenol for additional pain relief if needed. Orders: Orders XR knee RT 2V Today M25.562 - Pain in left knee Coding Level of Care Code Est Pt Level 3 (97689) Diagnoses Acute pain of left knee M25.562 Chronicity: acute
== END 2024-07-28 11:26 | disposition home or self-care (01) ==
PROVIDERS: Visit Provider Internal Medicine
DX: M25.562 Pain in left knee (principal)

== ENCOUNTER 2024-07-28 11:15 | Outpatient (REF) | payer MEDICARE, SELFPAY ==
--- NOTE | ~2024-07-28 | XR_ITS ---
EXAMINATION: XR KNEE, LEFT CLINICAL INFORMATION: M25.562 - Pain in left knee COMPARISON: None available. TECHNIQUE: AP oblique and lateral views, of the left knee. FINDINGS: Joint space narrowing involving mostly the medial compartment with associated sclerosis along the articular surface of the medial tibial plateau. No acute cortical disruption or malalignment. No gross suprapatellar bursa joint effusion. Osteopenia versus osteoporosis. No lytic or blastic lesions. XR/XR knee LT 4V IMPRESSION: Mild medial compartment osteoarthrosis. Electronically signed by: Melchor Lyons MD 07/28/2024 12:17 PM EDT
== END 2024-07-28 11:16 | disposition home or self-care (01) ==
LOC: HO.HMGCX 11:15
PROVIDERS: Visit Provider Internal Medicine
DX: M25.562 Pain in left knee (principal)
CPT/HCPCS: 73564; 99212

== ENCOUNTER → 2024-07-28 11:25 | Outpatient (BNV) | payer MEDICARE, SELFPAY | PROVIDERS: Visit Provider Radiology Diagnostic Radiology | DX: M17.12 Unilateral primary osteoarthritis, left knee (principal) | CPT/HCPCS: 73564 ==

== ENCOUNTER 2024-08-18 08:53 | Outpatient (AMB) | payer MEDICARE, SELFPAY ==
--- NOTE | 2024-08-18 09:06 | A.OFFPC_ITS ---
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 Narvaez.? In review of the notes, patient has been seen in the walk-in clinic several times over the last 4 months for left Zeng's cyst. The patient reports significant improvement in mobility of the left knee and red uction in pain over the past few weeks. Initially, the swelling was severe enough to impede getting into a car, but now mobility is much improved. The patient experienced two episodes of leg swelling, prompting concerns about possible blood clots, which were ruled out. Mild arthritis diagnosed during a previous visit, with mild symptoms localized to the knee. The patient reports occasional twinges but overall improvement. Previously noted low sodium levels were attributed to hydrochlorothiazide use and resolved with electrolyte drinks. colonoscopy: 2014 advised no longer needed by Dr. Rothman PSA: ordered last done 07/2023 eye doctor: yearly in [place] vaccines: Td due today, PCV fld [facility] Medical History Zeng's cyst Lower extremity edema Screening for prostate cancer Screening for hyperlipidemia Screening for diabetes mellitus Hypertension Surgical History History of colonoscopy No pertinent past surgical history Family History Father No problems noted. Mother Stroke Social History (Reviewed 08/18/24 @ 10:14 by RYAN [place] [facility] Alcohol intake: current Alcohol intake frequency: a few times a week Patient Tobacco Use Status: Never used Tobacco e-Cigarette/Vaping Use: Never Used Second Hand Smoke Exposure: No service: No Current occupational status: retired Cognitive needs: No Hearing needs: No Vision needs: No Questionnaire PHQ-9 Over the last 2 weeks, how often have you been bothered by any of the following problems? 1. Little interest or pleasure in doing things: not at all 2. Feeling down, depressed, or hopeless: not at all 3. Trouble falling or staying asleep, or sleeping too much: not at all 4. Feeling tired or having little energy: not at all 5. Poor appetite or overeating: not at all 6. Feeling bad about yourself - or that you are a failure or have let yourself or your family down: not at all 7. Trouble concentrating on things, such as reading the newspaper or watching television: not at all 8. Moving or speaking so slowly that other people could have noticed. Or the opposite - being so fidgety or restless that you have been moving around a lot more than usual: not at all 9. Thoughts that you would be better off or of hurting yourself in some way: not at all Total score: 0 Depression Screening Interpretation: Negative Depression Screening Done: Yes 49303 - PHQ-9 Billing: Yes Source: Developed by Drs. Alessandro Wright, Sridevi Solis, Emil Taylor and colleagues, with an educational sonya from [employer]. Thrive Questionnaire Date Thrive assessed: 08/18/24 I am a: Patient What is your living situation today?: I have a steady place to live Within the past 12 months, did the food you bought not last and you didn't have the money to get more?: Never true Within the past 12 months, did you worry whether your food would run out before you got money to buy more?: Never true Do you have trouble paying for medicines?: No Do you have trouble getting transportation to medical appointments?: No Do you have trouble paying your heating and electricity bill?: No Do you have trouble taking care of your child, family member or friend?: No Do you have trouble with day-to-day activities such as bathing, preparing meals, shopping, managing finances, etc.?: No Are you currently unemployed and looking for a job?: No Are you interested in more education?: No Please select the resources that you would like help with: None Currently or been in a relationship where the following occur: No concerns reported THRIVE Score: 0 AUDIT C Alcohol Use Questionnaire (AUDIT-C) 1. How often do you have a drink containing alcohol?: 2-4 times a month Total Score: 2 Score Reviewed/Action Taken: Yes SUSANNAH-7 AMB Questionnaire SUSANNAH-7 Date SUSANNAH - 7 assessed: 08/18/24 Feeling nervous, anxious, or on edge: 0 = Not at all Not being able to stop or control worryin = Not at all Worrying too much about different things: 0 = Not at all Trouble relaxin = Not at all Being so restless that it is hard to sit still: 0 = Not at all Becoming easily annoyed or irritable: 0 = Not at all Feeling afraid as if something awful might happen: 0 = Not at all Total SUSANNAH-7 score (0-4 normal; 5-9 mild; 10-14 moderate; 15-21 severe): 0 Source: Developed by Drs. Alessandro Wright, Sridevi Solis, Emil Taylor and colleagues, with an educational sonya from [employer]. SUSANNAH-7 Assessment Billing SUSANNAH-7 Assessment Tool: SUSANNAH-7 Assessment 71982 Review of Systems Const Denies body aches, Denies chills, Denies fever(s), Denies headache(s) and Denies poor appetite Eyes Reports no additional complaints ENT Denies dysphagia, Denies dizziness, Denies headache(s) and Denies odynophagia Card Denies chest pain, Denies syncope, Denies edema, Denies irregular heart rhythm, Denies lightheadedness and Denies dyspnea Resp Denies cough and Denies dyspnea GI Denies abdominal pain, Denies constipation, Denies dysphagia, Denies diarrhea, Denies nausea, Denies odynophagia and Denies vomiting Reports no additional complaints and Reports nocturia Musc Reports no additional complaints and Denies abnormal gait Skin/Breast Reports system reviewed and no additional complaints, except as documented Neuro Denies abnormal gait, Denies dizziness, Denies syncope and Denies headache(s) Psych Reports no additional complaints Physical exam (Primary Care) Vital Signs: Last Vital Signs Pulse 73 08/18/24 09:07 BP 142/78 H 08/18/24 09:44 Pulse Ox 98 08/18/24 09:07 Oxygen Delivery Method Room Air 08/18/24 09:07 BMI result Body Mass Index 22.7 Tobacco/Smoking Status: Tobacco use Status Tobacco use date assessed 08/18/24 08/18/24 09:11 Patient Tobacco Use Status Never used Tobacco 08/18/24 09:11 e-Cigarette/Vaping Use Never Used 08/18/24 09:11 PHQ-9: PHQ-9 Score PHQ-9: Total score 0 08/18/24 09:29 Depression Screening Interpretation: Negative Thrive Assessment: Date of Thrive Assessment Date Thrive assessed 08/18/24 08/18/24 09:11 Currently or been in a relationship where the following occur: No concerns reported Const General: cooperative, healthy appearing, comfortable and no acute distress Orientation/consciousness: patient oriented x3 HENMT Head: Yes normocephalic Ears: hearing grossly normal bilaterally General nose exam: Normal external nose present Face and sinus: Yes normal facial exam and Yes sinuses nontender Mouth: Normal oral and palatal mucosa present and tongue normal Throat: Yes posterior oropharynx normal Eyes General: appearance normal, both eyes and all related structures Conjunctivae: conjunctivae normal Pupils: Equal, round and reactive pupils present EOM: EOMs intact bilaterally and No Nystagmus present Neck Neck: Yes full ROM and Yes no lymphadenopathy Chest Chest palpation & inspection: normal inspection of the chest Resp Effort & Inspection: normal respiratory effort Auscultation: clear to auscultation bilaterally, no crackles, no rales, no rhonchi and no wheezes Cardio Rate: regular rate Rhythm: regular rhythm Peripheral pulses: radial pulses present and dorsalis pedis present GI Inspection: Yes normal to inspection and No Abdominal wall edema Palpation (GI): Soft to palpation, not firm and nontender Auscultation: normal bowel sounds Rectal Exam - Male: Yes deferred General: Yes no CVA tenderness Back/Spine/Pelvis Back: no CVA tenderness Skin General skin exam: no rashes or lesions noted Neuro General: patient oriented x3 Cranial nerves: Yes Equal, round and reactive pupils present, Yes Midline tongue present, Yes Ability to bilaterally elevate shoulders present and No Nystagmus present Gait exam (Neuro): Normal gait present Extrem General: Yes normal to inspection, Yes full ROM and No edema Psych Speech and movement: Normal speech and movement present Affect: normal affect Attitude: cooperative Insight: Good insight present (Psych) Judgement: Good judgement present (Psych) Coding Level of Care Code Est Pt Prev Care >65y(29144) Diagnoses Physical exam Z00.00 Hypertension, unspecified type I10 Hypertension type: unspecified Synovial cyst of left popliteal space M71.22 Laterality: left Additional Codes SUSANNAH-7 Assessment Billing - SUSANNAH-7 Assessment Tool: SUSANNAH-7 Assessment 55978 ([id number]) PHQ-9 - 02318 - PHQ-9 Billing: Yes ([id number]) Assessment & Plan Assessment & Plan (1) Physical exam: Code(s): Z00.00 - Encounter for general adult medical examination without abnormal findings Category: Medical Plan: Patient is up to date on all recommended screenings for his age. He is due for PSA which was ordered and due for Td. Patient left office prior to vaccination and this will be given at his next visit. Healthy diet and regular exercise is encouraged. Ordered for updated blood work and plan to follow up in 6 months or sooner as needed. (2) Hypertension: Code(s): I10 - Essential (primary) hypertension Category: Medical Qualifiers: Hypertension type: unspecified Qualified Code(s): I10 - Essential (primary) hypertension Plan: Continue on current blood pressure medication. Avoid salt intake and encourage healthy diet and regular exercise. Blood pressure mildly elevated in the office today. Patient agrees to check BP at home 2-3x per week and keep log of pressures for next visit. He agrees to reach out if the pressures exceed 140/90. (3) Zeng's cyst: Code(s): M71.20 - Synovial cyst of popliteal space [Zeng], unspecified knee Category: Medical Qualifiers: Laterality: left Qualified Code(s): M71.22 - Synovial cyst of popliteal space [Zeng], left knee Plan: Continue to monitor at this time. Currently asymptomatic and no swelling of bilateral legs. Plan The patient will continue monitoring the Zeng's cyst, as it has shown improvement in mobility and pain reduction. Orthopedic consultation will be deferred unless symptoms worsen. The patient is advised to maintain regular activity levels, including stair climbing, which has become easier as symptoms have improved. Hypertension management will continue with current medications, and the patient is instructed to monitor blood pressure at home. If readings exc eed 140/90 mmHg, the patient should contact the clinic for further evaluation. The patient is advised to stay hydrated, especially when taking hydrochlorothiazide. Preventative care includes a tetanus vaccination administered during the visit due to the patient's gardening activities. Blood work is ordered to assess cholesterol, thyroid function, and prostate-specific antigen levels, with results to be reviewed at the next follow-up. This note was constructed using voice recognition software. While every effort has been made to ensure accuracy and recovery manager, still areas may have been in cluded sometimes these areas may affect the content or meeting of the given symptoms. Total time spent caring for the patient today was 30 minutes. This includes time spent before the visit reviewing the chart, time spent during the visit, and time spent after the visit and documentation. Patient was informed and verbally consented to the use of an ambient scribe for clinic note documentation during this visit. Orders: Orders PSA, Ultra Sensitive Today Z00.00 - Encounter for general adult medical examination without abnormal findings, Z12.5 - Encounter for screening for malignant neoplasm of prostate Lipid Panel Today E78.00 - Pure hypercholesterolemia, unspecified, Z13.220 - Encounter for screening for lipoid disorders Vitamin B12 and Folate Today I10 - Essential (primary) hypertension, Z13.21 - Encounter for screening for nutritional disorder Vitamin D 25-OH Total Today I10 - Essential (primary) hypertension, Z00.00 - Encounter for general adult medical examination without abnormal findings TSH reflex Free T4 Today I10 - Essential (primary) hypertension, Z00.00 - Encounter for general adult medical examination without abnormal findings Free T4 (Free Thyroxine) Today I10 - Essential (primary) hypertension, Z00.00 - Encounter for general adult medical examination without abnormal findings
[2024-08-18 09:07] VITALS: BP 138/90; PULSE 73; O2SAT 98; BMI 22.7
--- OUTSIDE RECORDS SUMMARY | 2024-08-18 09:07 | XMS_ITS | Patient Health Record ---
Author Organization [facility] Address [address] [place] [address] Care Team Providers Care Log Chipper Name Role Phone Solange PITTMAN, Hayden Primary Care Provider Alessandro Lopez Unavailable [phone] Reason For Referral No Information Medications Medication SIG (Take, Route, Frequency, Duration) Notes Start Date End Date Status Colyte w Flavor Packs 240 GM as directed Orally as directed for 1 day(s) 02/24/2014 Active Problems Problem Type SNOMED Code ICD Code Onset Dates Problem Status W/U Status Risk Notes Problem Pre-surgery evaluation (545181376) Other specified pre-operative examination (V72.83) Active confirmed Problem Colon cancer screening (V76.51) Active confirmed Plan Of Treatment Future Test Test Name Order Date COLONOSCOPY 02/23/2014 Insurance Providers Payer Name Payer Address Payer Phone Subscriber Number Group Number Insured Name Patient Relationship to Insured Coverage Start Date Coverage End Date [employer] MEDI COMP (REFERR AL REQUIRE D) 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
[2024-08-18 09:44] VITALS: BP 142/78
== END 2024-08-18 09:51 | disposition home or self-care (01) ==
LOC: HO.HMCH 08:54
PROVIDERS: PCP Internal Medicine
DX: Z00.00 Encounter for general adult medical examination without abnormal findings (principal); I10 Essential (primary) hypertension; M71.22 Synovial cyst of popliteal space [Baker], left knee

== ENCOUNTER → 2024-08-18 08:53 | Outpatient (BNVA) | payer MEDICARE, SELFPAY | PROVIDERS: PCP Internal Medicine | DX: Z00.00 Encounter for general adult medical examination without abnormal findings (principal); Z76.89 Persons encountering health services in other specified circumstances; I10 Essential (primary) hypertension; M71.22 Synovial cyst of popliteal space [Baker], left knee | CPT/HCPCS: 96127; 99397 ==

== ENCOUNTER 2024-08-25 06:00 | Outpatient (REF) | payer MEDICARE, SELFPAY ==
[2024-08-25 08:14] LABS: Cholesterol 189 mg/dL (<200); HDL Cholesterol 50 mg/dL (>40); Triglycerides 70 mg/dL (<150)
[2024-08-25 08:32] LABS: Free T4 (Free Thyroxine) 1.03 ng/dL (0.71-1.85)
[2024-08-25 08:41] LABS: Folate 9.7 ng/mL (> or = 4.0); Vitamin B12 265 pg/mL (200-900)
[2024-08-31 23:08] LABS: PSA, Ultra Sensitive 0.26 ng/mL
== END 2024-08-25 06:01 | disposition home or self-care (01) ==
LOC: HO.LAB 06:00
DX: Z12.5 Encounter for screening for malignant neoplasm of prostate (principal); Z13.220 Encounter for screening for lipoid disorders; Z13.21 Encounter for screening for nutritional disorder; Z00.00 Encounter for general adult medical examination without abnormal findings; E78.00 Pure hypercholesterolemia, unspecified; I10 Essential (primary) hypertension
CPT/HCPCS: 36415; 80061; 82306; 82607; 82746; 84153; 84439; 84443